=== PATIENT | female | born 1945 | race Hispanic/Latino ===

== ENCOUNTER 2017-06-16 10:16 | Outpatient (CLI) | payer MEDICARE ==
--- NOTE | 2017-06-17 10:24 | PET Report ---
PET/CT:06/16/17 10:16:00 CLINICAL: Lung mass. RADIOPHARMACEUTICAL: 14.71mCi F18-FDG. COMPARISON: None. TECHNIQUE- Following intravenous injection of F-18 FDG and an approximately 60 minute uptake period, CT and PET images from the mid skull to the upper thighs were acquired with the patient in the fasted state. No contrast was administered. The CT protocol used for this PET CT study is designed for attenuation correction and anatomic localization of PET abnormalities. This hand shaper CT is not desired to produce and cannot replace, [id number] diagnostic CT scans with specific imaging protocols for different body parts and indications. Plasma glucose at the time of this test: 98g/dl. The standardized uptake values (SUV) are normalized to patient body weight and indicate the highest activity concentration (SUV max) in a given disease site. FINDINGS: Brain--Physiologic FDG uptake in the visualized regions of the brain. Neck--Physiologic FDG uptake . Chest--Physiologic FDG uptake in mediastinal blood pool and myocardium. Lungs--No abnormal uptake. An 8mm right upper lobe nodular opacity with ill-defined margins and no FDG uptake. No other lung nodule or mass. Moderate emphysema. Pleura/pericardium--No abnormal uptake. Thoracic nodes--No abnormal uptake. A few small mediastinal lymph nodes with FDG uptake equal to background. No lymphadenopathy. Hepatobiliary--No abnormal uptake. Liver background SUV mean, as a reference for comparing FDG studies, is 4.4 . A few small benign hepatic cysts. No liver mass. Spleen--No abnormal uptake. Pancreas--No abnormal uptake. Adrenal Glands--No abnormal uptake. Kidneys/Ureters/Bladder--No abnormal uptake. Abdominopelvic Nodes--No abnormal uptake. Bowel/Peritoneum/Mesentery--No abnormal uptake. Physiologic uptake in the cecum. Mild diverticulosis of the left colon. Pelvic organs--No abnormal uptake. Bones/Soft Tissues--No abnormal uptake. Other findings: Surgical clips in the right lower quadrant of the abdomen. Status post hysterectomy. IMPRESSION- 1. An 8mm low-density right upper lobe lung nodule with no FDG uptake. Despite the absence of FDG uptake, neoplasm cannot be excluded. Recommend followup with CT chest in six months. 2. Emphysema. 3. Benign hepatic cysts. 4. Mild diverticulosis.
== END 2017-06-16 10:17 | disposition home or self-care (01) ==
LOC: PET 10:16
PROVIDERS: ATTEND Internal Medicine
DX: J43.9 Emphysema, unspecified (principal); R91.8 Other nonspecific abnormal finding of lung field; K76.89 Other specified diseases of liver; K57.30 Diverticulosis of large intestine without perforation or abscess without bleeding; Z90.710 Acquired absence of both cervix and uterus
CPT/HCPCS: 78815; 82962; A9552